=== PATIENT | female | born 1955 | race Caucasian/White ===

== ENCOUNTER 2016-06-23 16:24 | Emergency (ER) | payer OTHER ==
[2016-06-23 14:09] LABS: ASCORBIC ACID (UR NOT ORDER) NEG (NEG); BILIRUBIN, URINE NEGATIVE (NEG); ER URINALYSIS TAT 0 Hrs 07 Mins; KETONE, URINE NEGATIVE (NEG); LEUKOCYTE ESTERASE(NOT OR NEG (NEG); NITRITE (URINE) NEG (NEG); WBC (NOT ORDERED) (RFLEX) 3 (0-5)
[2016-06-23 14:23] LABS: BASOPHILS 0.4 %; BASOPHILS ABSOLUTE 0.03 10/3/uL (0.0-0.16); EOSINOPHILS 1.3 %; EOSINOPHILS ABSOLUTE 0.11 10/3/uL (0.0-0.53); HEMATOCRIT 40.1 % (36.0-48.0); HEMOGLOBIN 13.7 g/dL (12.0-16.0); IMMATURE GRANULOCYTES 0.1 %; IMMATURE GRANULOCYTES ABSOLUTE 0.01 10/3/uL (0.0-0.11); LYMPHOCYTES 22.8 %; LYMPHOCYTES ABSOLUTE 1.92 10/3/uL (0.67-4.30); MEAN CORPUS HGB CONC 34.2 g/dL (32.0-36.0); MEAN CORPUSCULAR HEMOGLOB 31.4 pg (26.0-34.0); MEAN PLATELET VOLUME 8.7 fL (9.2-13.0); MONOCYTES 6.5 %; MONOCYTES ABSOLUTE 0.55 10/3/uL (0.21-1.20); NEUTROPHILS 68.9 %; NEUTROPHILS ABSOLUTE 5.79 10/3/uL (2.02-8.40); PLATELET COUNT 288 10/3/uL (150-400); RBC DISTRIBUTION WIDTH 13.1 % (12.0-16.0); RED CELL COUNT 4.36 10/6/uL (4.0-5.6); WHITE BLOOD CELLS 8.4 10/3/uL (4.5-10.5)
[2016-06-23 14:24] LABS: MANUAL DIFF NO %
[2016-06-23 14:40] LABS: A/G RATIO 0.9 (0.7-1.9); ALBUMIN 3.7 G/DL (3.5-5.0); ALKALINE PHOSPHATASE 85 U/L (45-117); BUN (BLOOD UREA NITROGEN) 14 MG/DL (6-23); CHLORIDE, SERUM 112 MMOL/L (96-112); CO2 (CARBON DIOXIDE) 27 MMOL/L (24-34); CREATININE 0.64 MG/DL (0.55-1.02); GFR AFRICAN AMERICAN 112 ML/MIN (>=60); GFR NON AFRICAN AMERICAN 96 ML/MIN (>=60); GLOBULIN 4.2 G/DL (2.5-4.1); GLUCOSE, SERUM 110 MG/DL (60-99); POTASSIUM, SERUM 3.8 MMOL/L (3.5-5.3); SGOT(AST) 9 U/L (5-40); SGPT(ALT) 13 U/L (5-65); SODIUM, SERUM 144 MMOL/L (135-148); TOTAL BILIRUBIN 0.5 MG/DL (0-1.2); TOTAL PROTEIN 7.9 G/DL (6.0-8.5)
== END 2016-06-23 16:27 | disposition home or self-care (01) ==
LOC: ER 16:24
PROVIDERS: Nurse Practitioner
DX: R10.9 Unspecified abdominal pain (principal); Z88.6 Allergy status to analgesic agent; Z88.0 Allergy status to penicillin; Z88.5 Allergy status to narcotic agent; Z88.8 Allergy status to other drugs, medicaments and biological substances
CPT/HCPCS: 74176; 80053; 81001; 83690; 85025; 96374; 99284; J2405

== ENCOUNTER 2016-07-07 16:04 | Emergency (ER) | payer OTHER | END 2016-07-07 17:16 | disposition home or self-care (01) | LOC: ER 16:04 | DX: S39.012A Strain of muscle, fascia and tendon of lower back, initial encounter (principal); S46.911A Strain of unspecified muscle, fascia and tendon at shoulder and upper arm level, right arm, initial encounter; I10 Essential (primary) hypertension; E11.9 Type 2 diabetes mellitus without complications; F17.200 Nicotine dependence, unspecified, uncomplicated; Z88.0 Allergy status to penicillin; Z88.5 Allergy status to narcotic agent; Z88.8 Allergy status to other drugs, medicaments and biological substances; X58.XXXA Exposure to other specified factors, initial encounter | CPT/HCPCS: 72100; 73030-RT; 99283; A9270-GY ==

== ENCOUNTER 2016-07-24 17:26 | Emergency (ER) | payer OTHER | END 2016-07-24 17:40 | disposition home or self-care (01) | LOC: ER 17:26 | DX: S43.401A Unspecified sprain of right shoulder joint, initial encounter (principal); M79.641 Pain in right hand; E11.9 Type 2 diabetes mellitus without complications; F17.200 Nicotine dependence, unspecified, uncomplicated; Z87.442 Personal history of urinary calculi; Z88.6 Allergy status to analgesic agent; Z88.0 Allergy status to penicillin; Z88.8 Allergy status to other drugs, medicaments and biological substances; W19.XXXA Unspecified fall, initial encounter | CPT/HCPCS: 73030-RT; 73130-RT; 99283; A9270-GY ==

== ENCOUNTER 2016-08-04 11:26 | Emergency (ER) | payer OTHER | END 2016-08-04 12:00 | disposition home or self-care (01) | LOC: ER 11:26 | PROC: 2W3CX1Z Immobilization of Right Lower Arm using Splint (ICD-10-PCS; principal; 2016-08-04) | DX: S63.501A Unspecified sprain of right wrist, initial encounter (principal); I10 Essential (primary) hypertension; E11.9 Type 2 diabetes mellitus without complications; F17.200 Nicotine dependence, unspecified, uncomplicated; Z88.6 Allergy status to analgesic agent; Z88.5 Allergy status to narcotic agent; Z87.442 Personal history of urinary calculi; Z88.0 Allergy status to penicillin; Z88.8 Allergy status to other drugs, medicaments and biological substances; W22.03XA Walked into furniture, initial encounter | CPT/HCPCS: 73110-RT; 99283 ==

== ENCOUNTER 2016-08-11 11:01 | Emergency (ER) | payer OTHER ==
[2016-08-11 11:25] LABS: ASCORBIC ACID (UR NOT ORDER) NEG (NEG); BILIRUBIN, URINE NEGATIVE (NEG); ER URINALYSIS TAT 0 Hrs 11 Mins; KETONE, URINE NEGATIVE (NEG); LEUKOCYTE ESTERASE(NOT OR NEG (NEG); NITRITE (URINE) NEG (NEG); WBC (NOT ORDERED) (RFLEX) 1 (0-5)
[2016-08-11 11:50] LABS: BASOPHILS 0.2 %; BASOPHILS ABSOLUTE 0.02 10/3/uL (0.0-0.16); EOSINOPHILS 0.6 %; EOSINOPHILS ABSOLUTE 0.05 10/3/uL (0.0-0.53); HEMATOCRIT 40.1 % (36.0-48.0); HEMOGLOBIN 14.9 g/dL (12.0-16.0); IMMATURE GRANULOCYTES 0.2 %; IMMATURE GRANULOCYTES ABSOLUTE 0.02 10/3/uL (0.0-0.11); LYMPHOCYTES 20.3 %; LYMPHOCYTES ABSOLUTE 1.78 10/3/uL (0.67-4.30); MEAN CORPUSCULAR HEMOGLOB 34.5 pg (26.0-34.0); MEAN CORPUSCULAR VOLUME 92.8 fL (80-100); MEAN PLATELET VOLUME 8.7 fL (9.2-13.0); MONOCYTES ABSOLUTE 0.53 10/3/uL (0.21-1.20); NEUTROPHILS 72.7 %; NEUTROPHILS ABSOLUTE 6.37 10/3/uL (2.02-8.40); PLATELET COUNT 258 10/3/uL (150-400); RBC DISTRIBUTION WIDTH 13.1 % (12.0-16.0); RED CELL COUNT 4.32 10/6/uL (4.0-5.6); WHITE BLOOD CELLS 8.8 10/3/uL (4.5-10.5)
[2016-08-11 11:51] LABS: MANUAL DIFF NO %; MEAN CORPUS HGB CONC 37.2 g/dL (32.0-36.0)
[2016-08-11 12:10] LABS: A/G RATIO 0.9 (0.7-1.9); ALBUMIN 3.6 G/DL (3.5-5.0); ALKALINE PHOSPHATASE 93 U/L (45-117); BUN (BLOOD UREA NITROGEN) 16 MG/DL (6-23); CALCIUM, SERUM 8.9 MG/DL (8.5-10.4); CHLORIDE, SERUM 109 MMOL/L (96-112); CO2 (CARBON DIOXIDE) 24 MMOL/L (24-34); CREATININE 0.76 MG/DL (0.55-1.02); GFR AFRICAN AMERICAN 98 ML/MIN (>=60); GFR NON AFRICAN AMERICAN 85 ML/MIN (>=60); GLOBULIN 4.1 G/DL (2.5-4.1); GLUCOSE, SERUM 117 MG/DL (60-99); POTASSIUM, SERUM 3.4 MMOL/L (3.5-5.3); SGOT(AST) 12 U/L (5-40); SGPT(ALT) 19 U/L (5-65); SODIUM, SERUM 140 MMOL/L (135-148); TOTAL BILIRUBIN 0.5 MG/DL (0-1.2); TOTAL PROTEIN 7.7 G/DL (6.0-8.5)
== END 2016-08-11 17:59 | disposition home or self-care (01) ==
LOC: ER 11:01
PROVIDERS: Emergency Medicine
DX: R10.11 Right upper quadrant pain (principal); F17.200 Nicotine dependence, unspecified, uncomplicated; I10 Essential (primary) hypertension; Z88.8 Allergy status to other drugs, medicaments and biological substances; Z88.0 Allergy status to penicillin; Z88.6 Allergy status to analgesic agent
CPT/HCPCS: 71010; 76705; 80053; 81001; 83690; 85025; 93005; 96374; 96375; 99284; A9270-GY; C9113; J2405

== ENCOUNTER 2016-08-14 22:00 | Emergency (ER) | payer OTHER | END 2016-08-15 02:11 | disposition home or self-care (01) | LOC: ER 22:00 | DX: S80.02XA Contusion of left knee, initial encounter (principal); F17.200 Nicotine dependence, unspecified, uncomplicated; Z88.5 Allergy status to narcotic agent; Z88.0 Allergy status to penicillin; Z88.6 Allergy status to analgesic agent; Z88.8 Allergy status to other drugs, medicaments and biological substances; W18.2XXA Fall in (into) shower or empty bathtub, initial encounter | CPT/HCPCS: 73560-LT; 99284 ==